=== PATIENT | female | born 1980 | race Caucasian/White ===

== ENCOUNTER 2016-05-04 11:50 | Inpatient (IN) | payer BC ==
[~2016-05-04] VITALS: Ht 162.6 cm; Wt 73.5 kg
--- NOTE | ~2016-05-04 | FD ---
ADMIT: 05/04/2016 RM/LOC: 219 [facility] MR#: [id number] [address] [address] PADMINI PAGAN [address] [place], [place] [id number] Final Diagnosis SEX: F AGE: 35 : 1980 ADMISSION DATE: 05/04/2016 DISCHARGE DATE: 05/05/2016 FINAL DIAGNOSIS: 1. Intrauterine at 37-2/7 weeks. 2. Viable male . PROCEDURE: Spontaneous vaginal delivery. Jodee Mensah MD Resident / Justin Coates MD / tanya JOB #: [id number] CC: Justin Coates MD, Attending Physician Justin Coates MD, Family Physician
[2016-05-06] MEDS ORDERED: TYLENOL #3 DPS1 TAB PO (13:22)
[2016-05-06] MEDS ORDERED: PRENATAL VIT1 TAB PO (13:22)
[2016-05-06] MEDS ORDERED: NIPPLECREAM TP (13:23)
--- NOTE | 2016-05-12 08:07 | OR ---
ADMIT: 05/04/2016 RM/LOC: 219 [facility] MR#: [id number] [address] [address] PDAMINI PAGAN [address] [place] [address] Operative/Delivery Room Report SEX: F AGE: 35 : 1980 SURGERY DATE: 05/04/2016 SURGEON: Justin Coates MD PROCEDURE: Spontaneous vaginal delivery. PREOPERATIVE DIAGNOSES: 1. Intrauterine at 37-2/7 weeks' gestation. 2. Premature rupture of membranes at term. POSTOPERATIVE DIAGNOSES: 1. Intrauterine at 37-2/7 weeks' gestation. 2. Premature rupture of membranes at term. FINDINGS: Live-born male infant with scores of 8 at 1 minute and 9 at 5 minutes. Weight 7 pounds 2 ounces, born at 1609. ESTIMATED BLOOD LOSS: 200 mL. ANESTHESIA: None. COMPLICATIONS: None. INDICATION FOR PROCEDURE: The patient is a 35-year-old, 3, para 2-0-0- 2, who presented to Labor and Delivery at 37-2/7 weeks' gestation by last menstrual period, consistent with 5-week ultrasound with complaint of loss of fluid. The patient was grossly ruptured and found to be in active labor and was therefore admitted. IV Pitocin was used to augment labor to maintain an adequate contraction pattern. The patient progressed nicely through labor to completely dilated and pushed, bringing the 's vertex to the perineum. DESCRIPTION OF PROCEDURE: The patient was noted be complete and pushing with 's vertex at the perineum. With a contraction, the patient pushed and the infant's vertex delivered over midline. The patient continued to push, ADMIT: 05/04/2016 RM/LOC: 219 [facility] MR#: [id number] [id number] [place] [id number] PADMINI PAGAN [address] [place] [address] Operative/Delivery Room Report SEX: F AGE: 35 : 1980 the anterior shoulder delivered, the posterior shoulder followed, and the remainder of the infant delivered without difficulty. Delayed cord clamping was allowed for 1 minute before the cord was doubly clamped and cut by the father. Umbilical cord was noted to have 3 vessels: 2 arteries and 1 vein. The placenta then delivered spontaneously and was noted to be intact. IV Pitocin was used after delivery of the infant to firm the uterus. The cervix was examined and noted to be free of lacerations. The vaginal vault and perineum were examined and there were noted to be 2 hemostatic first-degree perineal lacerations, 1 at midline and 1 to the left midline, that did not require repair. All sponge and needle counts were correct. The patient and recovered in the room in stable condition. Dr. Justin Coates was present and participated in management of both labor and delivery of this patient. Jodee Mensah MD Resident / Justin Coates MD / sarabjit JOB #: [id number] CC: Justin Coates, Attending Physician Justin Coates, Family Physician
--- NOTE | 2016-05-12 08:07 | HP ---
ADMIT: 05/04/2016 RM/LOC: 219 [facility] MR#: [id number] [address] [address] PADMINI PAGAN [address] [place] [address] History and Physical SEX: F AGE: 35 : 1980 DATE OF SERVICE: CHIEF COMPLAINT: Loss of fluid. HISTORY OF PRESENT ILLNESS: The patient is a 35-year-old, 3, para 2-0- 0-2 at 37 and 2/7th weeks' gestation by last menstrual period, consistent with 5- week ultrasound, who presented to Labor and Delivery with concern for loss of fluid. She reports she was sitting, painting her nails around 10:30 a.m., when she had a sudden gush of fluid. She denied any contractions prior to the fluid or really any significant contractions after the gush of fluid. She reports that the fluid was clear in color. Upon presentation to Labor and Delivery, the patient had a sterile vaginal exam and was found to be 5 cm dilated, 75% effaced, and -1 station with gross rupture of membranes. She reports she is feeling well with good movement. No significant contractions or any vaginal bleeding. PAST MEDICAL HISTORY: History of abnormal Pap smear, status post colposcopy with biopsy. Though those results are not available. PAST SURGICAL HISTORY: None. MEDICATIONS: vitamin. ALLERGIES: NO KNOWN MEDICAL ALLERGIES. FAMILY HISTORY: Autism in a paternal aunt. No known family history of traumatic deliveries, defects, or reactions to anesthesia. SOCIAL HISTORY: The patient is . She works at [employer]. She is a recent immigrant from [place]. She denies any alcohol or tobacco use during . REVIEW OF SYSTEMS: Positive loss of fluid and good movement. The patient denies any vaginal bleeding or significant contractions. PHYSICAL EXAMINATION: VITAL SIGNS: 114/80, 73, 20, 99%, and afebrile. GENERAL: Alert and oriented, sitting in bed, in no acute distress. The patient appears comfortable. HEENT: Head is normocephalic and atraumatic. Pupils are equal, round, and reactive to light. Extraocular muscles are intact. Mucous membranes are moist. NECK: Supple. Trachea is midline. Thyroid is not palpable. HEART: Regular rate and rhythm without murmur, rub, or gallop. LUNGS: Clear to auscultation bilaterally. ABDOMEN: Gravid, soft, nontender to palpation. Estimated weight is 7.5 pounds. : Sterile vaginal exam, 5 cm dilated, 50% effaced, -1 station. NEURO: Cranial nerves II through XII intact. Patient moving all 4 extremities spontaneously. PSYCH: Normal mood and affect. heart tracing baseline 130 with ADMIT: 05/04/2016 RM/LOC: 219 [facility] MR#: [id number] [address] [place] [address] PADMINI PAGAN [address] [place] [address] History and Physical SEX: F AGE: 35 : 1980 moderate variability, 15 x 15 accelerations present, no decelerations noted. Tocometry measuring contractions every 5 minutes. OBSTETRIC LABS: Blood type A positive, antibody screen negative, hepatitis B surface antigen negative, syphilis negative, rubella immune. Gonorrhea and chlamydia negative. HIV negative. Group B strep negative. ASSESSMENT AND PLAN: A 35-year-old, 3, para 2-0-0-2 at 41 and 2/7th weeks' gestation by LMP, consistent with 5 weeks' ultrasound, presenting with loss of fluid. PLAN: Admit the patient for active labor and we will augment with Pitocin as needed to maintain adequate contraction pattern. Antibiotics not indicated during delivery as group B strep screen was negative. heart tracing is category I. Anticipate spontaneous vaginal delivery. Jodee Mensah MD Resident / Justin Coates MD / sarabjit JOB #: [id number] CC: Justin Coates, Attending Physician Justin Coates, Family Physician
== END 2016-05-05 18:15 | disposition home or self-care (01) | DRG 775 ==
LOC: 2LDRP 11:50 → BC 11:50 → 2LDRP 12:19 → BC 05-23 08:00
PROVIDERS: ADMIT Family Medicine
PROC: 10E0XZZ Delivery of Products of Conception, External Approach (ICD-10-PCS; principal; 2016-05-04)
DX: O42.02 Full-term premature rupture of membranes, onset of labor within 24 hours of rupture (principal); Z82.79 Family history of other congenital malformations, deformations and chromosomal abnormalities; Z3A.37 37 weeks gestation of pregnancy; Z37.0 Single live birth